=== PATIENT | female | born 1980 | race Caucasian/White ===

== ENCOUNTER → 2017-05-05 | Outpatient (CLI) | payer OTHER ==
[~2017-05-05] MED LIST: AMOXICILLIN PO; AUGMENTIN PO; BACTRIM DS TABL1 TAB PO; FLONASE16 GM; IBUPROFEN PO; VICODIN 5/500 T1 TAB PO; ZYRTEC-D T1 TAB.SR . PO
--- NOTE | ~2017-05-05 | CR243 ---
[facility] A Service of [facility] RADIOLOGY TEXT RESULTS PATIENT: MARY WHITLOCK LOCATION: [facility] : [birth year] UNIT #: [id number] AGE: [address]: Fatou Gómez SEX: F ORDER DR: [id number] [address] [address] [id number] O MR#: [id number] Acc #: [id number] NAME: MARY WHITLOCK : 1980 SEX: F STUDY DATE/TIME: 05/05/2017 14:49 UNIT: [facility] ROOM: STUDY DESCRIPTION: CR Thoracic Spine 3 Views Attending Physician: Fatou Gómez A.P.R.N. Referring Physician: Fatou Gómez A.P.R.N. Ordering Physician: Fatou Gómez A.P.R.N. Primary Care Physician: Fatou Gómez A.P.R.N. MEDICAL IMAGING REPORT This report is preliminary unless electronic signature is present. EXAM Thoracic spine 05/05/2017 HISTORY 36-year-old female with chronic back pain. No specific injury. COMPARISON STUDIES None. FINDINGS 3 views of the thoracic spine demonstrate no acute fracture or subluxation. Vertebral body heights and alignment normally maintained. Disc spaces within expected limits. Minimal degenerative endplate changes in the upper mid-thoracic spine. Cervicothoracic junction unremarkable. Minimal dextroconvex thoracic scoliosis. IMPRESSION 1. No acute thoracic spine injury. 2. Minimal multilevel discogenic endplate degenerative changes. 3. Minimal dextroconvex thoracic scoliosis. Dictated by... Fermín Santiago M.D. THIS IS AN ELECTRONICALLY VERIFIED REPORT Fermín Santiago M.D. at 05/06/2017 10:11 AM YAMINI/inder TD: 05/05/2017 23:30 JOB #: [id number] [facility] A Service of [facility] RADIOLOGY TEXT RESULTS PATIENT: MARY WHITLOCK LOCATION: [facility] : 78 UNIT #: [id number] AGE: [address]: Fatou Gómez SEX: F ORDER DR: MEDICAL IMAGING REPORT Page 1 of 1
--- NOTE | ~2017-05-05 | CR181 ---
[facility]. [facility] A Service of [facility] & [facility] RADIOLOGY TEXT RESULTS PATIENT: MARY WHITLOCK LOCATION: [facility] : 78 UNIT #: [id number] AGE: [address]: Fatou Gómez SEX: F ORDER DR: [id number] [address] [address] [id number] O MR#: [id number] Acc #: [id number] NAME: MARY WHITLOCK : 1980 SEX: F STUDY DATE/TIME: 05/05/2017 14:49 UNIT: [facility] ROOM: STUDY DESCRIPTION: CR Lumbar Spine 2 or 3 Views Attending Physician: Fatou Gómez A.P.R.N. Referring Physician: Fatou Gómez A.P.R.N. Ordering Physician: Fatou Gómez A.P.R.N. Primary Care Physician: Fatou Gómez A.P.R.N. MEDICAL IMAGING REPORT This report is preliminary unless electronic signature is present. EXAM Lumbar spine 05/05/2017 HISTORY 36-year-old female with chronic back pain. No specific injury. COMPARISON STUDIES None. FINDINGS 3 views of the lumbar spine demonstrate no acute fracture or subluxation. Vertebral body heights and alignment normally maintained. Disc space and facets are within expected limits. Sacrum and SI joints intact. IMPRESSION Unremarkable lumbar spine. Dictated by... Fermín Santiago M.D. THIS IS AN ELECTRONICALLY VERIFIED REPORT Fermín Santiago M.D. at 05/06/2017 10:11 AM YAMINI/inder TD: 05/05/2017 23:06 JOB #: [id number] MEDICAL IMAGING REPORT Page 1 of 1
== END | disposition home or self-care (01) ==
LOC: SRAD 14:41
DX: M54.9 Dorsalgia, unspecified (principal)
CPT/HCPCS: 72072; 72100